=== PATIENT | male | born 1960 | race Caucasian/White ===

== ENCOUNTER 2016-08-12 09:31 | Emergency (ER) | payer MEDICAID ==
[~2016-08-12] VITALS: Ht 172.7 cm; Wt 72.6 kg
[~2016-08-12 09:31] MED LIST: LOM PO; MOTRIN600 MG PO; SULFAMETH/TRIME1 TA4 PO
[2016-08-12 11:33] LABS: BASOPHIL % 0.3 % (0-2); PLATELET COUNT 197 x10^3mcL (130-400)
[2016-08-12 12:09] LABS: AMPHETAMINE QUAL UR NONE DETECTED (NEG <=1000)
[2016-08-12 13:12] LABS: ALBUMIN 4.2 g/dL (3.4-5.0); ALKALINE PHOSPHATASE 64 U/L (46-116); ALT/SGPT 77 U/L (16-63); AST/SGOT 31 U/L (15-37); BILIRUBIN TOTAL 0.53 mg/dL (0.20-1.00); CHLORIDE SERUM 106 mmol/L (98-107); CHOLESTEROL 148 mg/dL (<200); CREATININE SERUM 0.8 mg/dL (0.7-1.3); GFR1 > 60 mL/min; GLUCOSE SERUM 163 mg/dL (74-106); HDL CHOLESTEROL 48 mg/dL (40-60); MAGNESIUM 1.8 mg/dL (1.8-2.4); POTASSIUM SERUM 4.1 mmol/L (3.5-5.1); SODIUM SERUM 142 mmol/L (136-145); TOTAL PROTEIN, SERUM 7.3 g/dL (6.4-8.2)
[2016-08-12 15:44] VITALS: BP 150/91
== END 2016-08-12 15:44 | disposition home or self-care (01) ==
LOC: ED 09:31
PROVIDERS: Emergency Medicine
DX: R42 Dizziness and giddiness (principal); R11.2 Nausea with vomiting, unspecified; I10 Essential (primary) hypertension
CPT/HCPCS: 82962; 83880; J8597